=== PATIENT | female | born 1960 | race Caucasian/White ===

== ENCOUNTER 2016-11-29 22:13 | Emergency (ER) | payer OTHER | END 2016-11-30 02:39 | disposition left against medical advice (07) | LOC: ER1 22:13 | DX: Z53.21 Procedure and treatment not carried out due to patient leaving prior to being seen by health care provider (principal) | CPT/HCPCS: 93005; 99284 ==

== ENCOUNTER → 2016-12-02 | Outpatient (CLI) | payer OTHER | LOC: NM 11-26 10:30 | DX: R06.02 Shortness of breath (principal); R05 Cough; R00.2 Palpitations; R53.82 Chronic fatigue, unspecified | CPT/HCPCS: ECHO; 71020; 78452; 93017; 93306; A9502; J2785 ==

== ENCOUNTER → 2020-12-20 | Outpatient (CLI) | payer OTHER ==
[~2020-12-20] MED LIST: BACTRIM DS TAB1 EACH PO; BACTROBAN OINT22 GM EXT; CIPRO500 MG PO; FLAGYL500 MG PO; KEFLEX CAP 500500 MG PO; ZOFRAN4 MG PO
== END ==
LOC: KOH-I 12-13 10:00
DX: F17.210 Nicotine dependence, cigarettes, uncomplicated (principal)
CPT/HCPCS: 71271

== ENCOUNTER → 2021-06-30 | Outpatient (CLI) | payer OTHER | LOC: KOH-I 13:12 | DX: M54.50 Low back pain, unspecified (principal) | CPT/HCPCS: 72100 ==